=== PATIENT | female | born 1975 | race Two or more races ===

== ENCOUNTER → 2023-04-05 | Emergency (ER) | payer SELFPAY ==
[~2023-04-05] VITALS: Ht 170.2 cm; Wt 113.6 kg
[~2023-04-05] MED LIST: IBUP-1456 PO; METH-1182 PO
[2023-04-05 17:29] VITALS: BP 127/86; PULSE 87; RESP 18; O2SAT 95
== END | disposition home or self-care (01) ==
LOC: ER 14:59
DX: S29.011A Strain of muscle and tendon of front wall of thorax, initial encounter (principal); S39.012A Strain of muscle, fascia and tendon of lower back, initial encounter; V49.59XA Passenger injured in collision with other motor vehicles in traffic accident, initial encounter; Y93.89 Activity, other specified; Y92.413 State road as the place of occurrence of the external cause; Y99.8 Other external cause status
CPT/HCPCS: 71046; 72220

== ENCOUNTER 2024-12-16 18:08 | Emergency (ER) | payer OTHER, SELFPAY ==
[~2024-12-16] VITALS: Ht 170.2 cm; Wt 116.9 kg
--- NOTE | 2024-12-16 18:21 | ED.PDOC ---
History of Present Illness(SKN HPI Comments 49-YEAR-OLD FEMALE PRESENTS TO THE ED CHIEF COMPLAINT MULTIPLE SCRACTHES/PUNCTURE/SUPERFICIAL PUNCTURE WOUNDS TO BILAT ARMS AND FINGERS BLEEDING CONTROLLED S/P CAT BITE. SHE NOTES HAS BEEN TAKEN CARE OF A FERAL OUTDOOR CAT FOR SEVERAL YEARS SHE DECIDED TO LET THE CAT IN CAT GOT SCARED AND ATTACKED HER. TETANUS SHOT UNKNOWN. REPORTS SIGNIFICANT HISTORY OF DIABETES HIGH CHOLESTEROL. Time Seen by MD: 18:14 Primary Care Provider: NONE History of Present Illness: Nurses Notes, Medications, Allergies Allergies: Coded Allergies: Ciprofloxacin (Verified Allergy, Severe, 12/16/24) Cefdinir (Verified Allergy, Unknown, 04/05/23) Home Meds Active Scripts Sulfamethoxazole W/Trimethopri (Bactrim Ds Tablet) 1 Tab Tb, 1 TAB PO BID for 10 Days, #20 TAB Prov:YAN ALANIS 12/16/24 Ibuprofen (Ibuprofen) 800 Mg Tab, 1 TAB PO TID, #30 TAB Prov:YAN ALANIS 12/16/24 Methocarbamol (Methocarbamol) 750 Mg Tab, 750 MG PO BID, #20 TAB Prov:JEFFRY KHAN 04/05/23 Information Source: Patient Past Medical History PAST MEDICAL HISTORY: Denies Surgical History: Denies all surgeries [employer] History: No Pertinent [employer] History Family History Family History: Reviewed,noncontributory to illness Social History Smoker: Non-Smoker Alcohol: Denies ETOH Use Drugs: Denies Drug Use Lives In: Home Constitutional: denies: chills, diaphoresis, fatigue, fever, malaise, sweats, weakness, others EENTM: denies: blurred vision, double vision, ear bleeding, ear discharge, ear drainage, ear pain, ear ringing, eye pain, eye redness, hearing loss, mouth pain, mouth swelling, nasal discharge, nose bleeding, nose congestion, nose pain, photophobia, tearing, throat pain, throat swelling, voice changes, others Respiratory: denies: cough, hemoptysis, orthopnea, SOB at rest, shortness of breath, SOB with excertion, stridor, wheezing, others Cardiovascular: denies: chest pain, dizzy spells, diaphoresis, Dyspnea on exertion, edema, irregular heart beat, left arm pain, lightheadedness, palpitations, PND, syncope, others Gastrointestinal: denies: abdomen distended, abdominal pain, blood streaked bowels, constipated, diarrhea, dysphagia, difficulty swallowing, hematemesis, melena, nausea, poor appetite, poor fluid intake, rectal bleeding, rectal pain, vomiting, others Genitourinary: denies: abnormal vagina bleeding, burning, dyspareunia, dysuria, flank pain, frequency, hematuria, incontinence, pain, , vagina discharge, urgency, others Neurological: denies: dizziness, fainting, headache, left sided numbness, left sided weakness, numbness, paresthesia, pre-existing deficit, right sided numbness, right sided weakness, seizure, speech problems, tingling, tremors, weakness, others Musculoskeletal: denies: back pain, gout, joint pain, joint swelling, muscle pain, muscle stiffness, neck pain, others Integumetry: reports: wounds (CAT SCRATCHES AND BITES BILATERAL FOREARMS AND HAND); denies: bruises, change in color, change in hair/nails, dryness, laceration, lesions, lumps, rash, others Allergic/Immunocompromised: denies: Difficulty Healing, Frequent Infections, Hives, Itching, others Hematologic/Lymphatic: denies: anemia, blood clots, easy bleeding, easy bruising, swollen glands, others Endocrine: denies: excessive hunger, excessive sweating, excessive thirst, excessive urination, flushing, intolerance to cold, intolerance to heat, unexplained weight gain, unexplained weight loss, others Psychiatric: denies: anxiety, bipolar disorder, depression, hopeless, panic disorder, schizophrenia, sleepless, suicidal, others Physical Exam General Appearance: No Apparent Distress, Normal HEENT: Pharynx Normal Neck: Full Range of Motion, Non-Tender Respiratory: Lungs Clear, No Respiratory Distress, Normal Breath Sounds Cardiovascular: No Murmur, Normal Peripheral Pulses, Regular Rate/Rhythm Breast Exam: Deferred Gastrointestinal: Non Tender, Soft Genitalia: Deferred Pelvic: Deferred Rectal: Deferred Extremities: Normal capillary refill, Normal range of motion, Non-tender, No pedal edema Musculoskeletal : Apperance: Normal Neurologic: Alert, No Motor Deficits, Normal Affect, Normal Mood, No Sensory Deficits Cerebellar Function: Normal Reflexes: Normal Skin: Dry, Normal Color, Warm, Wounds (MULTIPLE SUPERFICIAL SCRATCHES TO RIGHT AND LEFT FOREARM. PUNCTURE WOUND NOTED DORSAL ASPECT OF RIGHT WRIST WITH MODE RATE EDEMA. PUNCTURE WOUND NOTED LEFT HAND FINGER STRENGTH SENSORY MOTION INTACT CAP REFILL LESS THAN 3 SECONDS BLEEDING CONTROLLED NO NOTED OBVIOUS FOREIGN BODY OR DRAINAGE) Lymphatic: No Adenopathy Was a procedure done? Was a procedure done?: No Differential Diagnosis (INTG) Differential Diagnosis: Cellulitis, Insect Envenomation, Laceration, Puncture Wound Differential Diagnosis: Abscess X-Ray, Labs, Meds, VS Vital Signs Date Time Temp Pulse Resp B/P (MAP) Pulse Ox O2 Delivery O2 Flow Rate FiO2 12/16/24 19:38 98.3 89 18 143/84 (103) 97 98.3 12/16/24 18:35 98.8 87 15 131/91 (104) 97 98.8 X-Ray, Labs, Meds, VS Comment FINDINGS/IMPRESSION: There is subtle cortical irregularity of the distal part of the 4th digit distal phalanx with associated soft tissue edema. Recommend correlation with point tenderness for possible nondisplaced fracture. Otherwise, no evidence for acute traumatic fractures or dislocations. PATIENT GIVEN NORCO 10 MG P.O. FOR THE PAIN REPORTS IMPROVEMENT IN SYMPTOMS REQUESTING DISCHARGE AT THIS TIME. NOTED FRACTURE LEFT HAND RING FINGER DISTAL ASPECT FROM CAT BITE. WE WILL GIVE PATIENT ROCEPHIN 1 G IM. START PATIENT ON BACTRIM TWICE DAILY TIMES 10 DAYS. FINGER CLEANSED DRESSED AND PLACED IN SPLINT. PATIENT WITH HISTORY OF DIABETES ADVISED TO MONITOR HER BLOOD SUGARS ADVISED HER TO FOLLOW UP IN THE ER URGENT CARE OR HERE IN TWO DAYS FOR WOUND RE- EVALUATION. WRIST X-RAY SHOWS NO ACUTE FRACTURES OSSEOUS LESIONS OR DISLOCATIONS. ADVISED TO REST INCREASE P.O. FLUIDS WITH ELECTROLYTES SCRIPT IBUPROFEN 800 MG T.I.D. PRN. ADVISED ON RICE. ER RETURN PRECAUTIONS DISCUSSED IN DETAIL PATIENT INDICATES UNDERSTANDING AND AGREES WITH DISCHARGE PLAN OF CARE. Time of 1ST Reevaluation: 18:19 Reevaluation 1ST: Unchanged Time of 2ND Reevaluation: 19:43 Reevaluation 2ND: Improved Patient Education/Counseling: Diagnosis, Treatment, Prognosis, Need For Follow Up Family Education/Counseling: Diagnosis, Treatment, Prognosis, Need For Follow Up SEPSIS Sepsis Screen Physician Orders L Hand 3v Xray (12/16/24 18:35) R Wrist 3+ View Xray (12/16/24 18:35) Splints (12/16/24 ) Vital Signs Date Time Temp Pulse Resp B/P (MAP) Pulse Ox O2 Delivery O2 Flow Rate FiO2 12/16/24 19:38 98.3 89 18 143/84 (103) 97 98.3 12/16/24 18:35 98.8 87 15 131/91 (104) 97 98.8 Departure 1 Departure Time of Disposition: 19:44 Impression: Primary Impression: Cat bite of multiple sites Additional Impression: Fracture, finger, distal phalanx Qualified Codes: S62.665B - Nondisplaced fracture of distal phalanx of left ring finger, initial encounter for open fracture Disposition: HOME / SELF CARE / HOMELESS Condition: Stable Additional Instructions: DISCUSSED, FOLLOW UP IN TWO DAYS AT URGENT CARE YOUR PRIMARY CARE DOCTORS OR BACK HERE IN THE ER FOR WOUND RE-EVALUATION. KEEP A VERY CLOSE EYE ON YOUR BLOOD SUGARS IN SIGNS AND SYMPTOMS OF INFECTION SUCH REDNESS, INCREASING PAIN, INCREASING SWELLING, OR PURULENT DRAINAGE. e-Prescriptions Sulfamethoxazole W/Trimethopri (Bactrim Ds Tablet) 1 Tab Tb 1 TAB PO BID for 10 Days, #20 TAB Prov: YAN ALANIS 12/16/24 Ibuprofen (Ibuprofen) 800 Mg Tab 1 TAB PO TID, #30 TAB Prov: YAN ALANIS 12/16/24 Discharged With: Spouse Critical Care Note Critical Care Time?: No Stability Stability form required: No YAN ALANIS Dec 16, 2024 18:21
--- NOTE | 2024-12-16 19:11 | DVH ---
CLINICAL INDICATION: cat bite posterior wrist edema and pain TECHNIQUE: 3 radiographic views of the right wrist were obtained. Comparison: None FINDINGS/IMPRESSION: There is no evidence of acute fracture or dislocation. The visualized joint space is well maintained. The alignment is anatomical. There is no radiopaque foreign body.
--- NOTE | 2024-12-16 19:13 | DVH ---
CLINICAL INDICATION: cat bite 4th digit TECHNIQUE: 3 radiographic views of the right hand were obtained. Comparison: None FINDINGS/IMPRESSION: There is subtle cortical irregularity of the distal part of the 4th digit distal phalanx with associa uyriy soft tissue edema. Recommend correlation with point tenderness for possible nondisplaced fractur e. Otherwise, no evidence for acute traumatic fractures or dislocations.
[2024-12-16 19:38] VITALS: BP 143/84; PULSE 89; RESP 18; TEMP 98.3; O2SAT 97
[2024-12-16] MEDS ORDERED: BACDST PO (19:44)
[2024-12-16] MEDS ORDERED: IBUP-1456 PO (19:44)
[2024-12-16] MEDS: TETANUS-DIPTH-ACEL PERTUSSIS 0.5ML SYR Tdap IM ONE (20:03)
[2024-12-16] MEDS: HYDROcodone-ACET 10/325MG TAB PO ONE (20:04)
[2024-12-16] MEDS: cefTRIAXone SOD 1,000 MG VL IM ONE (20:05)
[2024-12-16] MEDS: LIDOCAINE 1% HCL (LOCAL ANESTH.) INJ 20ML MDV IJ ONE (20:05)
== END 2024-12-16 20:14 | disposition home or self-care (01) ==
LOC: ER 18:08
DX: S62.665A Nondisplaced fracture of distal phalanx of left ring finger, initial encounter for closed fracture (principal); Z88.1 Allergy status to other antibiotic agents; Z79.1 Long term (current) use of non-steroidal anti-inflammatories (NSAID); Z79.899 Other long term (current) drug therapy; W55.01XA Bitten by cat, initial encounter; Y93.89 Activity, other specified; Y92.89 Other specified places as the place of occurrence of the external cause; Y99.8 Other external cause status
CPT/HCPCS: 29130; 73110; 73130; 90471; 90715; 96372; 99284; J0696; J2003